=== PATIENT | male | born 1975 | race Caucasian/White ===

== ENCOUNTER 2016-07-07 16:38 | Emergency (ER) | payer MEDICAID ==
--- NOTE | 2016-07-07 19:27 | ER Document Report ---
ED General - General Chief Complaint: Hand Injury Stated Complaint: RIGHT HAND INJURY Mode of Arrival: Ambulatory Information source: Patient Notes: Patient is a 40 year old male who presents with right hand injury that occurred around 1600 this afternoon. He states a 2x4 fell across his hand. Endorses associated pain, swelling and ecchymosis but no bleeding or drainage. Pain exacerbated with movement. Patient did take ibuprofen earlier which did not provide relief. TRAVEL OUTSIDE OF THE [place] IN LAST 30 DAYS: No - Related Data Allergies/Adverse Reactions: No Known Allergies Allergy (Verified 07/07/16 17:19) Past Medical History - General Information source: Patient - Social History Smoking Status: Current Every Day Smoker Family History: Reviewed & Not Pertinent Patient has suicidal ideation: No Patient has homicidal ideation: No - Past Medical History Cardiac Medical History: Reports: Hx Hypertension Pulmonary Medical History: Reports: Hx Asthma - Pediatric, Hx COPD Renal/ Medical History: Denies: Hx Peritoneal Dialysis Past Surgical History: Reports: Hx Orthopedic Surgery - R shoulder - Immunizations Hx Diphtheria, Pertussis, Tetanus Vaccination: Yes - unk Review of Systems - Review of Systems Constitutional: See HPI EENT: No symptoms reported Cardiovascular: No symptoms reported Respiratory: No symptoms reported Gastrointestinal: No symptoms reported Genitourinary: No symptoms reported Male Genitourinary: No symptoms reported Musculoskeletal: See HPI Skin: No symptoms reported Hematologic/Lymphatic: No symptoms reported Neurological/Psychological: No symptoms reported Physical Exam - Vital signs Vitals: Temp Pulse Resp BP Pulse Ox 98.3 F 93 18 160/99 H 96 07/07/16 17:20 07/07/16 17:20 07/07/16 17:20 07/07/16 17:20 07/07/16 17:20 Interpretation: Hypertensive - Notes Notes: PHYSICAL EXAM: CONSTITUTIONAL: Alert and oriented, well-appearing and in no acute distress. HENT: Normocephalic, atraumatic. Moist mucous membranes. HEART: Regular rate and rhythm without murmurs. LUNGS: CTAB and equal. No wheezes, rales or rhonchi. EXTREMITIES:Righ thand - tender to palpation over proximal phalanx between PIP and DIP of middle finger of right hand. Ecchymosis and mild swelling but no skin break down or laceration noted. ROM limited secondary to pain. Cap refill < 3 seconds, distal pulses intact. All other extremities - Normal range of motion, no pitting edema. No cyanosis. Cap Refill <3 seconds. NEURO: Cranial nerves grossly intact. Normal sensory/motor exams. PSYCH: Normal mood, normal affect. SKIN: Warm and dry. Normal turgor. No rashes or lesions noted. Course - Re-evaluation Re-evalutation: 07/07/16 20:24 Patient seen and examined. No palpable deformities or dislocations. No abrasions or lacerations. Xray reviewed -negative for fracture or dislocation. Given PO vicodin for pain - patient reports pain improvement. Discussed ice/ elevation and pain medication as supportive care treatments. At this time, will discharge with return precautions and follow-up recommendations. Verbal discharge instructions given at the bedside and opportunity for questions given. Medication warnings reviewed. Patient is in agreement with this plan and has verbalized understanding of return precautions and the need for primary care follow-up in the next 24-72 hours. - Vital Signs Vital signs: Temp Pulse Resp BP Pulse Ox 98.3 F 93 18 160/99 H 96 07/07/16 17:20 07/07/16 17:20 07/07/16 17:20 07/07/16 17:20 07/07/16 17:20 - Diagnostic Test Radiology reviewed: Image reviewed, Reports reviewed Discharge - Discharge Clinical Impression: Contusion of right hand including fingers Qualifiers: Encounter type: initial encounter Qualified Code(s): S60.221A - Contusion of right hand, initial encounter; S60.00XA - Contusion of unspecified finger without damage to nail, initial encounter Condition: Stable Disposition: HOME, SELF-CARE Additional Instructions: You have been diagnosed with a contusion of your right hand. Your x-ray was negative for a broken bone or dislocation. We recommend alternating between ice and heat to the area. You have been given a prescription for pain medication. Contusion Your injury has resulted in a contusion -- a crushing of the deep tissues. No injury to important structures was detected during the physician's exam. Contusions vary in the amount of pain they cause, and in the length of time required for healing. Typically, the area will become bruised, and will remain painful to touch for two or three weeks. However, most patients are back to working and playing within a few days. After the initial period of rest and cold-packs, your symptoms (together with the doctor's recommendations) will determine how rapidly you can get back to full activity. Usually this means "do what feels okay, but don't do things that hurt." If re-examination was recommended, it's important to follow up as instructed. Call the doctor or return any time if pain increases, if swelling becomes severe, if you develop numbness or weakness in an injured extremity, or if any other alarming symptoms occur. Oral Narcotic Medication You have been given a prescription for pain control. This medication is a narcotic. It's best taken with food, as nausea can result if taken on an empty stomach. Don't operate machinery or drive within six hours of taking this medication. Do not combine this medicine with alcohol, or with any medication which can cause sedation (such as cold tablets or sleeping pills) unless you get permission from the physician. Narcotics tend to cause constipation. If possible, drink plenty of fluids and eat a diet high in fiber and fruits. Follow up with the provider of your choice in one to two weeks. Prescriptions: Tramadol HCl/Acetaminophen [Ultracet 37.5 mg/325 mg Tablet] 1 each PO Q8H #14 tablet Forms: Elevated Blood Pressure
[2016-07-07] MEDS ORDERED: HYDROCODONE/ACETAMINOPHEN 5-325 MG TABLET PO ONE (19:34)
[2016-07-07 20:42] VITALS: BP 156/99
== END 2016-07-07 20:41 | disposition home or self-care (01) ==
LOC: ER 16:38
DX: S60.031A Contusion of right middle finger without damage to nail, initial encounter (principal); S60.221A Contusion of right hand, initial encounter; W20.8XXA Other cause of strike by thrown, projected or falling object, initial encounter; F17.200 Nicotine dependence, unspecified, uncomplicated; I10 Essential (primary) hypertension; J44.9 Chronic obstructive pulmonary disease, unspecified
CPT/HCPCS: 99283

== ENCOUNTER 2016-10-22 08:20 | Emergency (ER) | payer MEDICAID ==
--- NOTE | 2016-10-22 09:37 | RADIOLOGY REPORT (SQ) ---
EXAM DESCRIPTION: HAND RIGHT 3 VIEWS COMPLETED DATE/TIME: 10/22/2016 9:19 am REASON FOR STUDY: hand injury, pain COMPARISON: 07/07/2016 EXAM PARAMETERS: NUMBER OF VIEWS: Three views. TECHNIQUE: AP, lateral and oblique radiographic images acquired of the right hand. LIMITATIONS: None. FINDINGS: MINERALIZATION: Normal. BONES: Acute fracture, distal right 5th metacarpal metaphysis with mild palmar angulation of the dist al fracture fragment. JOINTS: No effusions. SOFT TISSUES: Dorsal right hand soft tissue swelling. No foreign body. OTHER: No other significant finding. IMPRESSION: Acute minimally angulated right 5th metacarpal distal metaphysis fracture (boxer fractur e) TECHNICAL DOCUMENTATION: JOB ID: [id number] [employer] All Rights Reserved
[2016-10-22] MEDS ORDERED: HYDROCODONE/ACETAMINOPHEN 5-325 MG TABLET PO ONE (09:40)
[2016-10-22] MEDS ORDERED: ALBUTEROL SULFATE 0.083% NEB 2.5 MG/3 ML AMPUL NEB ONE (09:43)
--- NOTE | 2016-10-22 09:43 | ER Document Report ---
ED Hand/Wrist Injury - General Chief Complaint: Hand Pain Stated Complaint: FALL/RIGHT HAND INJURY Time Seen by Provider: 10/22/16 09:01 Mode of Arrival: Ambulatory Information source: Patient Notes: Patient is a 41-year-old male who presents to the ER today for right hand pain after getting out of the bed, tripping on his puppy and falling on his hand, tucked in underneath him. Patient states that he is having pain only there, but it does not radiate anywhere, he denies any numbness or tingling. He admits to bruising and swelling at the base of the 5th finger to the hand. TRAVEL OUTSIDE OF THE [place] IN LAST 30 DAYS: No - Related Data Allergies/Adverse Reactions: No Known Allergies Allergy (Verified 10/22/16 09:10) Home Medications: Current Home Medications Albuterol Sulfate [Albuterol Sulfate 2.5mg/3 mL] 1 vial NEB DAILY 10/22/16 [ History] Albuterol Sulfate [Proair HFA] 1 puff IH Q2H 10/22/16 [History] Gabapentin [Gabapentin] 400 mg PO TID 10/22/16 [History] Past Medical History - General Information source: Patient - Social History Smoking Status: Current Every Day Smoker Chew tobacco use (# tins/day): No Frequency of alcohol use: Occasional Drug Abuse: None Family History: Reviewed & Not Pertinent Patient has suicidal ideation: No Patient has homicidal ideation: No - Past Medical History Cardiac Medical History: Reports: Hx Hypertension Pulmonary Medical History: Reports: Hx Asthma - Pediatric, Hx COPD Renal/ Medical History: Denies: Hx Peritoneal Dialysis Past Surgical History: Reports: Hx Orthopedic Surgery - R shoulder - Immunizations Hx Diphtheria, Pertussis, Tetanus Vaccination: Yes - unk Review of Systems - Review of Systems Constitutional: No symptoms reported EENT: No symptoms reported Cardiovascular: No symptoms reported Respiratory: No symptoms reported Gastrointestinal: No symptoms reported Genitourinary: No symptoms reported Male Genitourinary: No symptoms reported Musculoskeletal: See HPI Skin: No symptoms reported Hematologic/Lymphatic: No symptoms reported Neurological/Psychological: No symptoms reported Physical Exam - Vital signs Vitals: Temp Pulse Resp BP Pulse Ox 98.3 F 80 21 H 159/93 H 95 10/22/16 08:23 10/22/16 08:23 10/22/16 08:23 10/22/16 08:23 10/22/16 08:23 - Notes Notes: PHYSICAL EXAMINATION: GENERAL: Appears uncomfortable, but in no acute distress. HEAD: Atraumatic, normocephalic. EYES: Pupils equal round and reactive to light, extraocular movements intact, sclera anicteric, conjunctiva are normal. ENT: ear canals without erythema or foreign body, TMs pearly gilliam with good bony landmarks, nares patent, oropharynx clear without exudates. Moist mucous membranes. Airway patent NECK: Normal range of motion, supple without lymphadenopathy LUNGS: mild-Moderate wheezes in all lung connell, no rales or rhonchi. 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 No cyanosis. NEUROLOGICAL: Cranial nerves grossly intact. Normal sensory/motor exams. PSYCH: Normal mood, normal affect. SKIN: Warm, Dry, normal turgor, ecchymoses and edema to dorsum of right hand at base of 5th digit Course - Re-evaluation Re-evalutation: 10/22/16 15:00 Right fifth metacarpal distal metaphysis fracture, minimally angulated, consistent with boxer's fracture. Patient placed an ulnar gutter splint and given orthopedic information to follow-up with. I also gave him some pain medication for his fracture. When I entered the room patient was having some wheezing, requested a nebulizer treatment as he does have COPD. His vitals were otherwise stable, he was quite wheezy, I did give him breathing treatment in the ER. He states that he has enough albuterol and inhalers at home and does not need a refill on these. 10/22/16 15:00 - Vital Signs Vital signs: Temp Pulse Resp BP Pulse Ox 98.2 F 70 15 149/92 H 92 10/22/16 10:20 10/22/16 10:20 10/22/16 10:20 10/22/16 10:20 10/22/16 10:20 Procedures - Immobilization Right Hand Time completed: 09:00 Pre-Proc Neuro Vasc Exam: Normal Immobilizer type: Ulnar Performed by: PCT Post-Proc Neuro Vasc Exam: Normal Alignment checked and good: Yes Discharge - Discharge Clinical Impression: Boxjd fracture Qualifiers: Encounter type: initial encounter Fracture type: closed Qualified Code(s): S62.339A - Displaced fracture of neck of unspecified metacarpal bone, initial encounter for closed fracture Condition: Stable Disposition: HOME, SELF-CARE Additional Instructions: Return immediately for any new or worsening symptoms. Follow up with Ortho, call tomorrow to make followup appointment. Prescriptions: Hydrocodone/Acetaminophen [[place] 5-325 mg Tablet] 1 tab PO Q4 PRN #10 tablet PRN Reason: Referrals: JADA JARAMILLO MD [ACTIVE STAFF] - Follow up as needed
[2016-10-22 10:24] VITALS: BP 149/92
== END 2016-10-22 10:24 | disposition home or self-care (01) ==
LOC: ER 08:20
PROC: 2W3CX1Z Immobilization of Right Lower Arm using Splint (ICD-10-PCS; principal; 2016-10-22)
DX: S62.336A Displaced fracture of neck of fifth metacarpal bone, right hand, initial encounter for closed fracture (principal); W01.0XXA Fall on same level from slipping, tripping and stumbling without subsequent striking against object, initial encounter; Y92.009 Unspecified place in unspecified non-institutional (private) residence as the place of occurrence of the external cause; I10 Essential (primary) hypertension; J44.9 Chronic obstructive pulmonary disease, unspecified; F17.200 Nicotine dependence, unspecified, uncomplicated
CPT/HCPCS: 94640; 99283

== ENCOUNTER 2016-11-01 19:47 | Emergency (ER) | payer MEDICAID ==
[2016-11-01] MEDS ORDERED: DIPH/PERTUSS(ACELL)/TETANUS VAC/PF 0.5 ML SYR (>=10YO) IM ONE (20:12)
[2016-11-01] MEDS ORDERED: IPRATROPIUM/ALBUTEROL 0.5-2.5 MG/3 ML AMPUL NEB ONE (20:12)
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
--- NOTE | 2016-11-01 20:43 | RADIOLOGY REPORT (SQ) ---
EXAM DESCRIPTION: FOOT RIGHT COMPLETE; ANKLE RIGHT COMPLETE COMPLETED DATE/TIME: 11/01/2016 8:30 pm REASON FOR STUDY: injury, swelling, pain COMPARISON: None. FINDINGS: Three views right ankle: No fracture. No effusion. Talar dome intact. Mild lateral sof t tissue swelling. No radiopaque foreign body. Three views right foot: No fracture. No radiopaque foreign body. IMPRESSION: No evidence of right foot or right ankle fracture or radiopaque foreign body. TECHNICAL DOCUMENTATION: JOB ID: [id number]
[2016-11-01] MEDS ORDERED: HYDROMORPHONE HCL INJ/PF 2 MG/ML AMPULE IM ONE (20:51)
[2016-11-01] MEDS ORDERED: HYDROCODONE/ACETAMINOPHEN 5-325 MG 6 TAB/DSPK ONE (21:29)
[2016-11-01] MEDS ORDERED: HYDROCODONE/ACETAMINOPHEN 5-325 MG 6 TAB/DSPK PO PRN (21:30)
[2016-11-01 21:33] VITALS: BP 138/92
== END 2016-11-01 21:33 | disposition home or self-care (01) ==
LOC: ER 19:47
DX: M54.9 Dorsalgia, unspecified (principal); M79.601 Pain in right arm; M79.604 Pain in right leg; V87.7XXA Person injured in collision between other specified motor vehicles (traffic), initial encounter
CPT/HCPCS: 94640; 99284; 96372; 90471; 73610; 73630; 90715; J1170; J7620

== ENCOUNTER 2016-11-11 12:16 | Emergency (ER) | payer MEDICAID ==
[2016-11-11 12:24] VITALS: BP 179/114
[2016-11-11] MEDS ORDERED: OXYCODONE-ACETAMINOPHEN 5-325 MG TABLET PO ONE (12:44)
[2016-11-11] MEDS ORDERED: KETOROLAC TROMETHAMINE INJ/PF 30 MG/1 ML SDV IV ONE (12:49)
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
[2016-11-11] MEDS ORDERED: CLINDAMYCIN 600 MG/D5W RTU 600 MG/50 ML RTUPB IV SCH (13:00)
[2016-11-11] MEDS ORDERED: SILVER SULFADIAZINE 1% CREAM 25 GM TP ONE (13:30)
[2016-11-11 14:02] LABS: ABSOLUTE BASOPHILS # (AUTO) 0.1 10^3/uL (0.0-0.2); ABSOLUTE LYMPHOCYTES (AUTO) 0.8 10^3/uL (0.5-4.7); ABSOLUTE MONOCYTES (AUTO) 0.3 10^3/uL (0.1-1.4); ABSOLUTE NEUT (AUTO) 3.1 10^3/uL (1.7-8.2); BASOPHILS % (AUTO) 1.2 % (0-2); EOSINOPHILS % (AUTO) 1.1 % (0-6); HEMATOCRIT 44.7 % (37.9-51.0); HEMOGLOBIN 15.3 g/dL (13.5-17.0); HGB HCT DIFFERENCE 1.2; LYMPHOCYTES % (AUTO) 17.8 % (13-45); MEAN CORPUSCULAR HEMOGLOBIN 29.3 pg (27.0-33.4); MEAN CORPUSCULAR HGB CONC 34.2 g/dL (32.0-36.0); MEAN CORPUSCULAR VOLUME 86 fl (80-97); RED BLOOD COUNT 5.24 10^6/uL (4.35-5.55); RED CELL DISTRIBUTION WIDTH 14.8 % (11.5-14.0); SEGMENTED NEUTROPHILS % (AUTO) 72.9 % (42-78); WHITE BLOOD COUNT 4.3 10^3/uL (4.0-10.5)
[2016-11-11 14:17] LABS: ANION GAP 9 (5-19); BLOOD UREA NITROGEN 6 mg/dL (7-20); CARBON DIOXIDE 28 mmol/L (22-30); CHLORIDE 105 mmol/L (98-107); CREATININE RESULT 0.74 mg/dL (0.52-1.25); GLUCOSE 100 mg/dL (75-110); POTASSIUM 4.8 mmol/L (3.6-5.0)
--- NOTE | 2016-11-11 14:21 | RADIOLOGY REPORT (SQ) ---
EXAM DESCRIPTION: FOOT RIGHT COMPLETE COMPLETED DATE/TIME: 11/11/2016 2:11 pm REASON FOR STUDY: r foot pain, cellulitis COMPARISON: 11/01/2016 NUMBER OF VIEWS: Three views. TECHNIQUE: AP, lateral and oblique radiographic images acquired of the right foot. LIMITATIONS: None. FINDINGS: MINERALIZATION: Normal. BONES: No acute fracture or dislocation. No worrisome bone lesions. JOINTS: No effusions. SOFT TISSUES: No soft tissue swelling. No foreign body. OTHER: No other significant finding. IMPRESSION: There is no evidence of osteomyelitis. There is no acute abnormality. TECHNICAL DOCUMENTATION: JOB ID: [id number] [employer]- All Rights Reserved
== END 2016-11-11 14:51 | disposition home or self-care (01) ==
LOC: ER 12:16
DX: S90.811A Abrasion, right foot, initial encounter (principal); L03.115 Cellulitis of right lower limb; M79.671 Pain in right foot; R03.0 Elevated blood-pressure reading, without diagnosis of hypertension; V29.9XXA Motorcycle rider (driver) (passenger) injured in unspecified traffic accident, initial encounter; F17.200 Nicotine dependence, unspecified, uncomplicated
CPT/HCPCS: 99284; 96375; 96365; 36415; 87040; 87070; 87205; 85025; 87077; 80048; 87186; 73630; S0077; J1885; J3490

== ENCOUNTER 2018-03-12 14:52 | Emergency (ER) | payer MEDICAID ==
--- NOTE | 2018-03-12 16:28 | ER Document Report ---
ED Medical Screen (RME) - General Chief Complaint: Dog Bite Stated Complaint: DOG BITE Time Seen by Provider: 03/12/18 16:18 TRAVEL OUTSIDE OF THE [place] IN LAST 30 DAYS: No - Related Data Allergies/Adverse Reactions: No Known Allergies Allergy (Verified 03/12/18 15:04) Past Medical History - Past Medical History Cardiac Medical History: Reports: Hx Hypertension Pulmonary Medical History: Reports: Hx Asthma - Pediatric, Hx COPD Renal/ Medical History: Denies: Hx Peritoneal Dialysis Past Surgical History: Reports: Hx Orthopedic Surgery - R shoulder - Immunizations Hx Diphtheria, Pertussis, Tetanus Vaccination: Yes - unk Physical Exam - Vital signs Vitals: Temp Pulse Resp BP Pulse Ox 98.7 F 101 H 18 150/97 H 97 03/12/18 15:10 03/12/18 15:10 03/12/18 15:10 03/12/18 15:10 03/12/18 15:10 Course - Re-evaluation Re-evalutation: 03/12/18 16:37 This is a gentleman bit by dog in the left hand with a deep injury at the base of the left thumb. Diminished range of motion of the left hand. We will obtain x-ray. Have seen and evaluated this patient in rapid medical screening examination, he will require further evaluation reassessment and disposition determination by secondary medical provider. - Vital Signs Vital signs: Temp Pulse Resp BP Pulse Ox 98.7 F 101 H 18 150/97 H 97 03/12/18 15:10 03/12/18 15:10 03/12/18 15:10 03/12/18 15:10 03/12/18 15:10 Doctor's Discharge - Discharge Referrals: SHANELLE CUMMINS MD [Primary Care Provider] - Follow up as needed
[2018-03-12] MEDS ORDERED: HYDROCODONE/ACETAMINOPHEN 5-325 MG TABLET PO ONE ×2 (16:36→20:54)
[2018-03-12] MEDS ORDERED: DIPH/PERTUSS(ACELL)/TETANUS VAC/PF 0.5 ML SYR (>=10YO) IM ONE (16:36)
--- NOTE | 2018-03-12 17:09 | RADIOLOGY REPORT (SQ) ---
EXAM DESCRIPTION: HAND LEFT 3 VIEWS COMPLETED DATE/TIME: 03/12/2018 4:56 pm REASON FOR STUDY: injury left thumb COMPARISON: None. EXAM PARAMETERS: NUMBER OF VIEWS: Three views. TECHNIQUE: AP, lateral and oblique radiographic images acquired of the left hand. LIMITATIONS: None. FINDINGS: MINERALIZATION: Normal. BONES: No acute fracture or dislocation. No worrisome bone lesions. JOINTS: No effusions. SOFT TISSUES: There is soft tissue gas throughout the thenar eminence of the hand, and soft tissue ga s between the 1st and 2nd metacarpals from dog bite. No retained radiopaque foreign body OTHER: No other significant finding. IMPRESSION: Left hand soft tissue gas. No retained radiopaque foreign body. No bony puncture wound from dog bite. TECHNICAL DOCUMENTATION: JOB ID: [id number] [employer]- All Rights Reserved Reading location - IP/workstation name: [email or web address]
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
[2018-03-12] MEDS ORDERED: AMOXICILLIN TR/POT CLAVULANATE 500-125 MG TAB PO ONE (21:14)
[2018-03-12] MEDS ORDERED: HYDROCODONE/ACETAMINOPHEN 5-325 MG (6 TAB/ER DISP) PO PRN (21:15)
[2018-03-12 23:01] VITALS: BP 149/86
== END 2018-03-12 23:13 | disposition home or self-care (01) ==
LOC: ER 14:52
DX: S61.452A Open bite of left hand, initial encounter (principal); W54.0XXA Bitten by dog, initial encounter; Y93.89 Activity, other specified; Z23 Encounter for immunization; F17.200 Nicotine dependence, unspecified, uncomplicated; I10 Essential (primary) hypertension; J44.9 Chronic obstructive pulmonary disease, unspecified
CPT/HCPCS: 99283; 90471; 73130; 90715; 29125; J3490

== ENCOUNTER 2018-06-06 21:24 | Emergency (ER) | payer SELFPAY ==
[2018-06-06 21:45] VITALS: BP 150/79
[2018-06-06] MEDS ORDERED: LIDOCAINE 1%/EPINEPHRINE INJ 20 ML VIAL ONE (22:54)
[2018-06-06] MEDS ORDERED: LIDOCAINE 1%/EPINEPHRINE INJ 20 ML VIAL INJ ONE (22:54)
--- NOTE | 2018-06-06 23:14 | ER Document Report ---
ED General - General Chief Complaint: Abscess Stated Complaint: RIGHT ARM PIT PAIN Time Seen by Provider: 06/06/18 22:49 Notes: Patient is a 42-year-old male who presents emergency department with a chief complaint of an abscess to his right axilla area and to his left forearm. Started 2 days ago. There are 2 abscesses to his right axilla and one to his left forearm. Denies any fever, night sweats, chills. States he had a problem with an abscess in his groin about 3 years ago. He had to have that surgically removed and a drain was placed. Past medical history includes COPD, in which she still smokes. TRAVEL OUTSIDE OF THE [place] IN LAST 30 DAYS: No - Related Data Allergies/Adverse Reactions: No Known Allergies Allergy (Verified 03/12/18 15:04) Past Medical History - Social History Smoking Status: Current Every Day Smoker Family History: Reviewed & Not Pertinent - Past Medical History Cardiac Medical History: Reports: Hx Hypertension Pulmonary Medical History: Reports: Hx Asthma - Pediatric, Hx COPD Renal/ Medical History: Denies: Hx Peritoneal Dialysis Past Surgical History: Reports: Hx Orthopedic Surgery - R shoulder - Immunizations Hx Diphtheria, Pertussis, Tetanus Vaccination: Yes - unk Review of Systems - Review of Systems Notes: REVIEW OF SYSTEMS: CONSTITUTIONAL : Denies recent illness. Denies recent unintentional weight loss. Denies fever, chills, or sweats. EENT: Denies eye, ear, throat, or mouth pain, discharge, or symptoms. Denies nasal or sinus congestion. CARDIOVASCULAR: Denies chest pain. RESPIRATORY: Denies shortness of breath, cough, congestion, difficulty breathing, or wheezing. GASTROINTESTINAL: Denies nausea, vomiting, and diarrhea. Denies abdominal pain. Denies constipation. GENITOURINARY: Denies difficulty urinating, burning, blood in urine, urgency or frequency. MUSCULOSKELETAL: Denies neck and back pain. Denies joint pain or swelling. SKIN: See HPI HEMATOLOGIC : Denies easy bruising or bleeding. LYMPHATIC: Denies swollen, painful, enlarged glands. NEUROLOGICAL: Denies no numbness or tingling denies weakness. Denies headache. Denies altered mental status. Denies alteration in speech. PSYCHIATRIC: Denies stress, anxiety, alteration in sleep patterns, or depression. All other systems reviewed and negative. Physical Exam - Vital signs Vitals: Temp Pulse Resp BP Pulse Ox 98.5 F 77 14 150/79 H 93 06/06/18 21:43 06/06/18 21:43 06/06/18 21:43 06/06/18 21:43 06/06/18 21:43 - Notes Notes: PHYSICAL EXAMINATION: GENERAL: Appears well, healthy, well-nourished, no acute distress. HEAD: Normocephalic, atraumatic. EYES: PERRL, conjunctiva normal, all extraocular movements intact, sclera nonicteric ENT: Moist mucous membranes. NECK: Supple, no noticeable swelling, redness, rash. Normal range of motion. LUNGS: Equal breath sounds bilaterally and clear to auscultation. No wheezes rales or rhonchi. CARDIOVASCULAR: S1-S2, regular rate, regular rhythm. Radial pulses 2+, normal. ABDOMEN: Normoactive bowel sounds. Soft, nontender, no guarding, no rebound tenderness, and no masses palpated. EXTREMITIES: Normal strength and range of motion, no pitting or edema. No cyanosis. NEUROLOGICAL: Moves all extremities upon command. Strength 5/5 in all extremities. PSYCH: Normal mood, normal affect. SKIN: Warm, dry. 2 abscesses noted to right axilla area and one to the left forearm. Left forearm abscess draining purulent drainage. Normal skin turgor. Course - Re-evaluation Re-evalutation: Differential diagnosis includes but normal limited to: abscess, dermoid cyst, sebaceous cyst, furnucle, or others. Based on patient's physical exam and history, these are abscesses. They were drained in the ER. There is surrounding cellulitis. I do not believe the patient has underlying necrotizing fasciitis. Patient has risk factors for MRSA. Based on patient's physical exam and these factors, they will be treated with antibiotics. During the incision and drainage, the patient became irate after he was numbed. His was at bedside and stated "are not you going to give him pain medication before you do this?" I replied to his , "Oral pain medication is not indicated for abscess drainage. Once the lidocaine numbs the area, he should not have any pain." When the patient was first anesthetized with the lidocaine, he became very angry because of the pain. He kept saying he was in pain, although when I touched the area after it was numb he could not tell that I was touching it and he did not move when I touch the area with the tweezers. He did have some tenderness when I expressed the purulent drainage from his abscess. I stated to him that abscess drainage does hurt and is uncomfortable. Patient had stated multiple times, "I just want to fucking stop, you are just making it worse" in a threatening tone. His is also getting upset because I did not premedicate him with pain medication. Nena Cohen RN walked into the room and I asked her to stay because the patient and his were using a threatening tone of voice. Maribel stayed and the patient and his changed their tone. Patient let me finish draining his abscesses. I had offered to drain his left forearm abscess, but he states that he is much rather drain it on his own. He will be started on Keflex and Bactrim. He will follow-up with his primary care provider in regards to this issue. - Vital Signs Vital signs: Temp Pulse Resp BP Pulse Ox 98.5 F 77 14 150/79 H 93 06/06/18 21:43 06/06/18 21:43 06/06/18 21:43 06/06/18 21:43 06/06/18 21:43 Discharge - Discharge Clinical Impression: Axillary abscess, Abscess of left forearm Condition: Stable Disposition: HOME, SELF-CARE Instructions: Abscess ([facility]), Cephalexin ([facility]), Post Incision and Drainage, Trimethoprim-Sulfa ([facility]) Additional Instructions: You were seen for an abscess that required drainage. Please clean this area with soap and water twice daily and apply a topical antibiotic. Dress the area after each cleaning. Please return if you develop fever, vomiting, the pain at the site worsens, you notice spreading redness from the area, or you have any other symptoms that are concerning to you. Prescriptions: Cephalexin Monohydrate [Keflex 500 mg Capsule] 500 mg PO Q6H 7 Days #28 capsule Sulfamethoxazole/Trimethoprim [Bactrim Ds Tablet] 1 each PO BID 7 Days #14 tablet
[2018-06-06] MEDS ORDERED: SULFAMETHOXAZOLE/TRIMETHOPRIM 800-160 MG TABLET PO ONE (23:46)
[2018-06-06] MEDS ORDERED: CEPHALEXIN 500 MG CAPSULE PO ONE (23:46)
== END 2018-06-07 00:32 | disposition home or self-care (01) ==
LOC: ER 21:24
DX: L02.411 Cutaneous abscess of right axilla (principal); L02.414 Cutaneous abscess of left upper limb; L03.119 Cellulitis of unspecified part of limb; F17.200 Nicotine dependence, unspecified, uncomplicated; J44.9 Chronic obstructive pulmonary disease, unspecified; I10 Essential (primary) hypertension
CPT/HCPCS: 99283; 10061; J3490

== ENCOUNTER 2018-08-28 10:23 | Emergency (ER) | payer SELFPAY ==
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
--- NOTE | 2018-08-28 12:24 | ER Document Report ---
ED General - General Chief Complaint: Abscess Stated Complaint: POSSIBLE ABSCESS Time Seen by Provider: 08/28/18 10:32 Mode of Arrival: Ambulatory Notes: Patient is a 42-year-old male with multiple large abscesses to his bilateral arms. The largest is on his right wrist. He states this is been there for at least 2 days. He does state that he crawled underneath a trailer and he thinks that he may have been bitten by spiders. He does report a history of abscesses in the past. Denies any fever or chills. Denies shortness of breath or chest pain. Denies any drug use. TRAVEL OUTSIDE OF THE [place] IN LAST 30 DAYS: No - Related Data Allergies/Adverse Reactions: No Known Allergies Allergy (Verified 08/28/18 10:24) Past Medical History - General Information source: Patient - Social History Smoking Status: Current Every Day Smoker Frequency of alcohol use: None Drug Abuse: None Family History: Reviewed & Not Pertinent Patient has suicidal ideation: No Patient has homicidal ideation: No - Past Medical History Cardiac Medical History: Reports: Hx Hypertension Pulmonary Medical History: Reports: Hx Asthma - Pediatric, Hx COPD Renal/ Medical History: Denies: Hx Peritoneal Dialysis Past Surgical History: Reports: Hx Orthopedic Surgery - R shoulder - Immunizations Hx Diphtheria, Pertussis, Tetanus Vaccination: Yes - unk Review of Systems - Review of Systems Constitutional: See HPI EENT: No symptoms reported Cardiovascular: See HPI Respiratory: See HPI Gastrointestinal: No symptoms reported Genitourinary: No symptoms reported Male Genitourinary: No symptoms reported Musculoskeletal: No symptoms reported Skin: See HPI Hematologic/Lymphatic: No symptoms reported Neurological/Psychological: No symptoms reported Physical Exam - Vital signs Vitals: Temp Pulse Resp BP Pulse Ox 98 F 104 H 16 145/81 H 96 08/28/18 10:31 08/28/18 10:31 08/28/18 10:31 08/28/18 10:31 08/28/18 10:31 - Notes Notes: PHYSICAL EXAMINATION: Reviewed vital signs and charting by RN GENERAL: Alert, interacts well. No acute distress. HEAD: Normocephalic, atraumatic. EYES: Pupils equal and round. Extraocular movements intact. NECK: Full range of motion. Trachea midline. LUNGS: Clear to auscultation bilaterally, no wheezes, rales, or rhonchi. No respiratory distress. HEART: Regular rate and rhythm. No murmur ABDOMEN: soft, non-tender. No distention. Bowel sounds present EXTREMITIES: Moves all 4 extremities spontaneously. No edema, No cyanosis. PSYCH: Normal affect, normal mood. SKIN: Warm, dry, normal turgor. No rashes or lesions noted. Course - Re-evaluation Re-evalutation: 08/28/18 12:37 Patient with a significant abscess on the right anterior wrist directly over the radial artery and another large one on his left anterior forearm. Ultrasound was applied and there was no evidence of any color and there were fluid pockets identified. 08/28/18 12:[address] Barriga briefly assessed patient. His recommendation was to give 1 round of vancomycin 25 mg/kg IV, perform an I&D, send for a culture and get some basic labs. 08/28/18 13:23 Incision and drainage performed on 3 separate abscesses, one on the right volar wrist and 2 on the the left forearm. Large amount of purulent discharge expressed from them after using a scalpel after local anesthesia with lidocaine 1% without epinephrine. 2 wound cultures were sent. Vancomycin 1.5 g initiated IV. Labs all drawn and pending. 08/28/18 13:26 Patient did not have leukocytosis and is afebrile. A urine drug screen was ordered and he was positive for opiates. The location of the abscesses were very suspicious. Patient received vancomycin and then removed his IV. At this point he does not meet admission criteria and I will prescribe him Keflex and Bactrim for cellulitis. I have given him a good Rx drug card to ensure that he can afford them. Blood cultures were drawn. Vital signs within normal limits. Patient is stable for discharge. - Vital Signs Vital signs: Temp Pulse Resp BP Pulse Ox 98.1 F 78 20 124/84 97 08/28/18 15:27 08/28/18 15:27 08/28/18 15:27 08/28/18 15:27 08/28/18 15:27 - Laboratory Result Diagrams: 08/28/18 12:54 08/28/18 12:54 Laboratory results interpreted by me: 08/28/18 08/28/18 12:54 12:54 Hgb 12.1 L Hct 36.0 L MCV 76 L MCH 25.5 L RDW 15.9 H Seg Neutrophils % 79.2 H Lymphocytes % 11.3 L BUN 3 L Creatinine 0.48 L Procedures - Incision and Drainage Left Anterior Arm Type: Simple Anesthetic type: 1% Lidocaine Blade size: 16 Incision Method: Incision made by scalpel Left Mid- Arm Type: Simple Anesthetic type: 1% Lidocaine Blade size: 16 I&D procedure: Shurclens applied Incision Method: Incision made by scalpel Right Volar Wrist Type: Simple Anesthetic type: 1% Lidocaine mL's of anesthetic: 1 Blade size: 16 I&D procedure: Shurclens applied Incision Method: Incision made by scalpel Discharge - Discharge Clinical Impression: Abscess Cellulitis Qualifiers: Site of cellulitis: extremity Site of cellulitis of extremity: upper extremity Laterality: unspecified laterality Qualified Code(s): L03.119 - Cellulitis of unspecified part of limb Condition: Good Disposition: HOME, SELF-CARE Instructions: Abscess ([facility]), Cephalexin ([facility]), Post Incision and Drainage, Trimethoprim-Sulfa ([facility]) Additional Instructions: The abscesses is a infection of your skin. You need to take the antibiotics as prescribed. Do not stop even if the rash goes away until you have completed all the antibiotics. The area of redness was traced out here in the emergency department with a marking pen. You need to return to emergency department if the redness spreads outside of this area by more than 2 cm in any direction. You should also return if you develop fevers with temperature greater than 101, persistent vomiting, worsening pain, or have any other symptoms that are concerning to you. Prescriptions: RX: Cephalexin Monohydrate [Keflex 500 mg Capsule] 500 mg PO Q6H 7 Days capsule RX: Sulfamethoxazole/Trimethoprim [Septra-Ds 800-160 mg Tablet] 1 tab PO BID #14 tablet
[2018-08-28] MEDS ORDERED: LIDOCAINE 1% INJ (10 MG/ML) 10 ML MDV INJ ONE (12:26)
[2018-08-28] MEDS ORDERED: VANCOMYCIN HCL INJ 1000 MG VIAL IV ONE (12:48)
[2018-08-28 13:07] LABS: ABSOLUTE BASOPHILS # (AUTO) 0.1 10^3/uL (0.0-0.2); ABSOLUTE LYMPHOCYTES (AUTO) 0.9 10^3/uL (0.5-4.7); ABSOLUTE MONOCYTES (AUTO) 0.6 10^3/uL (0.1-1.4); ABSOLUTE NEUT (AUTO) 6.2 10^3/uL (1.7-8.2); BASOPHILS % (AUTO) 0.9 % (0-2); EOSINOPHILS % (AUTO) 0.4 % (0-6); HEMOGLOBIN 12.1 g/dL (13.5-17.0); LYMPHOCYTES % (AUTO) 11.3 % (13-45); MEAN CORPUSCULAR HEMOGLOBIN 25.5 pg (27.0-33.4); MEAN CORPUSCULAR HGB CONC 33.6 g/dL (32.0-36.0); MEAN CORPUSCULAR VOLUME 76 fl (80-97); MONOCYTES % (AUTO) 8.2 % (3-13); PLATELET COUNT 401 10^3/uL (150-450); RED BLOOD COUNT 4.74 10^6/uL (4.35-5.55); RED CELL DISTRIBUTION WIDTH 15.9 % (11.5-14.0); SEGMENTED NEUTROPHILS % (AUTO) 79.2 % (42-78); TOTAL CELLS COUNTED % (AUTO) 100 %; WHITE BLOOD COUNT 7.9 10^3/uL (4.0-10.5)
[2018-08-28] MEDS: ACETAMINOPHEN 325 MG TABLET PO ONE ×2 (13:16→13:38)
[2018-08-28 13:24] LABS: ANION GAP 7 (5-19); BLOOD UREA NITROGEN 3 mg/dL (7-20); CALCIUM 8.7 mg/dL (8.4-10.2); CARBON DIOXIDE 27 mmol/L (22-30); CHLORIDE 104 mmol/L (98-107); GLUCOSE 94 mg/dL (75-110); POTASSIUM 4.6 mmol/L (3.6-5.0); SODIUM 138.4 mmol/L (137-145)
[2018-08-28] MEDS ORDERED: HYDROCODONE/ACETAMINOPHEN 5-325 MG TABLET PO ONE (13:30)
[2018-08-28] MEDS ORDERED: ACETAMINOPHEN 325 MG TABLET PO ONE (13:30)
[2018-08-28 14:24] LABS: URINE AMPHETAMINES SCREEN NEGATIVE; URINE BARBITURATES SCREEN NEGATIVE; URINE BENZODIAZEPINES SCREEN NEGATIVE; URINE COCAINE SCREEN NEGATIVE; URINE MARIJUANA (THC) SCREEN NEGATIVE; URINE METHADONE SCREEN NEGATIVE; URINE PHENCYCLIDINE SCREEN NEGATIVE
[2018-08-28 15:29] VITALS: BP 124/84
== END 2018-08-28 15:30 | disposition home or self-care (01) ==
LOC: ER 10:23
DX: L02.414 Cutaneous abscess of left upper limb (principal); L02.413 Cutaneous abscess of right upper limb; L03.119 Cellulitis of unspecified part of limb; I10 Essential (primary) hypertension; F17.200 Nicotine dependence, unspecified, uncomplicated
CPT/HCPCS: 99283; 96374; 36415; 87040; 87070; 87205; 85025; 87075; 87077; 80048; 87186; 80307; 10061; J3370

== ENCOUNTER 2018-09-20 15:34 | Emergency (ER) | payer SELFPAY ==
--- NOTE | 2018-09-20 17:53 | ER Document Report ---
ED Medical Screen (RME) - General Chief Complaint: Skin Sore(s) Stated Complaint: SKIN SORES/REDNESS, PAIN Time Seen by Provider: 09/20/18 17:48 Mode of Arrival: Ambulatory Information source: Patient Notes: Patient presents to the emergency department with multiple large abscesses to his left arm and 1 or 2 to his right arm. Patient reports that he started a few days ago. 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 Denies other symptoms such as fever vomiting diarrhea. Denies IV drug use. he has tried to cut open Ssome of the abscesses himself. Reports his daughter had emergency surgery last week on her back for an abscess. I have greeted and performed a rapid initial assessment of this patient. A comprehensive ED assessment and evaluation of the patient, analysis of test results and completion of the medical decision making process will be conducted by additional ED providers. Dictation of this chart was performed using voice recognition software; therefore, there may be some unintended grammatical errors. TRAVEL OUTSIDE OF THE [place] IN LAST 30 DAYS: No - Related Data Allergies/Adverse Reactions: No Known Allergies Allergy (Verified 09/20/18 15:35) Past Medical History - Past Medical History Cardiac Medical History: Reports: Hx Hypertension Pulmonary Medical History: Reports: Hx Asthma - Pediatric, Hx COPD Renal/ Medical History: Denies: Hx Peritoneal Dialysis Past Surgical History: Reports: Hx Orthopedic Surgery - R shoulder - Immunizations Hx Diphtheria, Pertussis, Tetanus Vaccination: Yes - unk Physical Exam - Vital signs Vitals: Temp Pulse Resp BP Pulse Ox 98.4 F 85 16 140/76 H 96 09/20/18 16:44 09/20/18 16:44 09/20/18 16:44 09/20/18 16:44 09/20/18 16:44 Course - Vital Signs Vital signs: Temp Pulse Resp BP Pulse Ox 98.4 F 85 16 140/76 H 96 09/20/18 16:44 09/20/18 16:44 09/20/18 16:44 09/20/18 16:44 09/20/18 16:44
[2018-09-20 18:35] LABS: ABSOLUTE BASOPHILS # (AUTO) 0.1 10^3/uL (0.0-0.2); ABSOLUTE EOSINOPHILS # (AUTO) 0.2 10^3/uL (0.0-0.6); ABSOLUTE MONOCYTES (AUTO) 0.9 10^3/uL (0.1-1.4); ABSOLUTE NEUT (AUTO) 7.3 10^3/uL (1.7-8.2); BASOPHILS % (AUTO) 0.8 % (0-2); EOSINOPHILS % (AUTO) 1.6 % (0-6); HEMATOCRIT 33.5 % (37.9-51.0); HEMOGLOBIN 11.1 g/dL (13.5-17.0); LYMPHOCYTES % (AUTO) 10.3 % (13-45); MEAN CORPUSCULAR VOLUME 76 fl (80-97); PLATELET COUNT 382 10^3/uL (150-450); RED BLOOD COUNT 4.43 10^6/uL (4.35-5.55); RED CELL DISTRIBUTION WIDTH 16.4 % (11.5-14.0); SEGMENTED NEUTROPHILS % (AUTO) 77.3 % (42-78); TOTAL CELLS COUNTED % (AUTO) 100 %; WHITE BLOOD COUNT 9.4 10^3/uL (4.0-10.5)
[2018-09-20 18:50] LABS: ALANINE AMINOTRANSFERASE 17 U/L (21-72); ALBUMIN 3.6 g/dL (3.5-5.0); ALKALINE PHOSPHATASE 254 U/L (38-126); ANION GAP 10 (5-19); ASPARTATE AMINO TRANSFERASE 20 U/L (17-59); BILIRUBIN,DIRECT 0.3 mg/dL (0.0-0.4); BILIRUBIN,TOTAL 0.6 mg/dL (0.2-1.3); BLOOD UREA NITROGEN 19 mg/dL (7-20); CALCIUM 9.1 mg/dL (8.4-10.2); CARBON DIOXIDE 27 mmol/L (22-30); CHLORIDE 95 mmol/L (98-107); GLUCOSE 99 mg/dL (75-110); POTASSIUM 4.5 mmol/L (3.6-5.0); SODIUM 131.8 mmol/L (137-145)
[2018-09-20 22:14] VITALS: BP 152/84
== END 2018-09-20 23:46 | disposition left against medical advice (07) ==
LOC: ER 15:34
DX: L02.414 Cutaneous abscess of left upper limb (principal); L02.413 Cutaneous abscess of right upper limb; I10 Essential (primary) hypertension; J44.9 Chronic obstructive pulmonary disease, unspecified; Z53.20 Procedure and treatment not carried out because of patient's decision for unspecified reasons
CPT/HCPCS: 36415; 80053; 85025; 87040; 99281

== ENCOUNTER 2018-11-01 20:24 | Emergency (ER) | payer SELFPAY ==
--- NOTE | 2018-11-01 21:30 | ER Document Report ---
ED General - General Chief Complaint: Accidental Overdose Stated Complaint: POSSIBLE OVERDOSE Time Seen by Provider: 11/01/18 21:24 Mode of Arrival: Stretcher Information source: Patient TRAVEL OUTSIDE OF THE [place] IN LAST 30 DAYS: No - HPI Notes: Patient was brought in by ambulance. Patient states that he overdosed on heroin at approximately 7 PM. Medics state they found the patient with agonal respirations and administered Narcan. By the time patient arrived here he was awake alert x4 and denied any current symptoms. He states this is the first time this is ever happened. He denies any thoughts of harming himself or others. No trouble with hearing voices or seeing visions. He denies any shortness of breath or chest pain. Symptoms were severe. They were constant. They consisted of being apneic. They were reversed with Narcan they would have obvious even worth without Narcan. There is no known radiation of the symptoms. Symptoms are now gone. - Related Data Allergies/Adverse Reactions: No Known Allergies Allergy (Verified 09/20/18 15:35) Past Medical History - General Information source: Patient - Social History Smoking Status: Current Every Day Smoker Frequency of alcohol use: Occasional Drug Abuse: Heroin Family History: Reviewed & Not Pertinent Patient has suicidal ideation: No Patient has homicidal ideation: No - Past Medical History Cardiac Medical History: Reports: Hx Hypertension Pulmonary Medical History: Reports: Hx Asthma - Pediatric, Hx COPD Renal/ Medical History: Denies: Hx Peritoneal Dialysis Past Surgical History: Reports: Hx Orthopedic Surgery - R shoulder - Immunizations Hx Diphtheria, Pertussis, Tetanus Vaccination: Yes - unk Review of Systems - Review of Systems Constitutional: denies: Chills, Fever Cardiovascular: denies: Chest pain, Dyspnea Respiratory: denies: Cough, Short of breath -: Yes All other systems reviewed and negative Physical Exam - Vital signs Vitals: Temp Pulse Resp Pulse Ox 97.9 F 105 H 19 100 11/01/18 20:32 11/01/18 20:32 11/01/18 20:32 11/01/18 20:32 Interpretation: Normal - General General appearance: Appears well, Alert - HEENT Head: Normocephalic, Atraumatic Eyes: Normal Pupils: PERRL - Respiratory Respiratory status: No respiratory distress Chest status: Nontender Breath sounds: Normal Chest palpation: Normal - Cardiovascular Rhythm: Regular Heart sounds: Normal auscultation Murmur: No - Abdominal Inspection: Normal Distension: No distension Bowel sounds: Normal Tenderness: Nontender Organomegaly: No organomegaly - Back Back: Normal, Nontender - Extremities General upper extremity: Normal inspection, Nontender, Normal color, Normal ROM, Normal temperature General lower extremity: Normal inspection, Nontender, Normal color, Normal ROM, Normal temperature, Normal weight bearing. No: Krista's sign - Neurological Neuro grossly intact: Yes Cognition: Normal Orientation: AAOx4 Nichols Coma Scale Eye Opening: Spontaneous Kerrie Coma Scale Verbal: Oriented Nichols Coma Scale Motor: Obeys Commands Nichols Coma Scale Total: 15 Speech: Normal Motor strength normal: LUE, RUE, LLE, RLE Sensory: Normal - Psychological Associated symptoms: Normal affect, Normal mood - Skin Skin Temperature: Warm Skin Moisture: Dry Skin Color: Normal Course - Re-evaluation Re-evalutation: 11/01/18 21:27 Patient overdosed on heroin. It is 2-1/2 hours since the overdose and patient has no symptoms. I do not believe the patient needs further work-up. He has stable to be discharged home. He has no labored respirations or decreased saturations. I will attempt to give the patient a prescription for some home Narcan to use. I offered the patient help with heroin addiction but patient declined. - Vital Signs Vital signs: Temp Pulse Resp BP Pulse Ox 97.9 F 105 H 18 98 11/01/18 20:32 11/01/18 20:32 11/01/18 20:34 11/01/18 20:34 - EKG Interpretation by Me EKG shows normal: Sinus rhythm Rate: Normal - 87 Rhythm: NSR Gleason/QRS: No: Right axis deviation, Left axis deviation Discharge - Discharge Clinical Impression: Accidental heroin overdose Qualifiers: Encounter type: initial encounter Qualified Code(s): T40.1X1A - Poisoning by heroin, accidental (unintentional), initial encounter Condition: Stable Disposition: HOME, SELF-CARE Instructions: Narcotic Abuse ([facility]) Additional Instructions: Please seek help for your heroin use as soon as possible Prescriptions: Naloxone HCl [Narcan] 4 mg NS ONCE PRN #1 spray PRN Reason:
[2018-11-01 21:41] VITALS: BP 135/88
--- NOTE | 2018-11-02 06:57 | EKG REPORT ---
SEVERITY:- NORMAL ECG - SINUS RHYTHM : Confirmed by: Houston Echeverria MD 02-Nov-2018 06:56:46
== END 2018-11-01 21:41 | disposition home or self-care (01) ==
LOC: ER 20:24
DX: T40.1X1A Poisoning by heroin, accidental (unintentional), initial encounter (principal); F17.200 Nicotine dependence, unspecified, uncomplicated; I10 Essential (primary) hypertension; J44.9 Chronic obstructive pulmonary disease, unspecified
CPT/HCPCS: 93005; 93010